=== PATIENT | male | born 1965 | race Caucasian/White ===

== ENCOUNTER → 2025-02-08 14:08 | Outpatient (REF) | payer OTHER, SELFPAY | LOC: RAD 14:08 | PROVIDERS: ATTENDING PHYSICIAN Physician Assistant Medical; FAMILY PHYSICIAN Family Medicine | DX: M79.645 Pain in left finger(s) (principal) | CPT/HCPCS: 73140 ==

== ENCOUNTER 2025-02-17 15:09 | Outpatient (RCR) | payer OTHER, SELFPAY | END 2025-02-17 23:59 | disposition home or self-care (01) | LOC: ROT 15:09 | PROVIDERS: ATTENDING PHYSICIAN Physician Assistant Medical; FAMILY PHYSICIAN Family Medicine | DX: M79.645 Pain in left finger(s) (principal); Z73.6 Limitation of activities due to disability | CPT/HCPCS: 97166; 97535; 97760 ==